=== PATIENT | male | born 1965 | race American Indian/Alaskan Native ===

== ENCOUNTER 2017-07-10 01:01 | Emergency (ER) | payer BC ==
[2017-07-10 01:09] VITALS: PULSE 108; RESP 16; TEMP 98.3; O2SAT 99
[2017-07-10] MEDS ORDERED: Oxycodone/Acetaminophen 5/325 mg Tab PO STA (01:36)
[2017-07-10] MEDS ORDERED: Oxycodone/Acetaminophen 5/325 mg Tab ONE (01:43)
--- NOTE | 2017-07-10 01:46 | ED PDOC ---
HPI: Back Time Seen by Provider: 07/10/17 01:11 Chief Complaint (Nursing): Back Pain Chief Complaint (Provider): Low back pain, right History Per: Patient History/Exam Limitations: no limitations Onset/Duration Of Symptoms: Days (3) Current Symptoms Are (Timing): Still Present Quality Of Discomfort: Sharp Severity: Severe Pain Scale Rating Of: 10 Previous Symptoms: Chronic Pain Associated Symptoms: None Additional Complaint(s): Pt states he has history of discectomy in the lumbar spine and sciatica. Pt states he saw physical therapist wednesday night and a few hours later began having pain. Pt states he has a flare up every few months but this is much worse. Pt states normally he takes flexeril and the pain improves. No recent trauma. No change or new actives. Denies fever/chills. Denies numbness/ tingling. Denies bladder or bowel incontinence. Past Medical History Reviewed: Historical Data, Nursing Documentation, Vital Signs Vital Signs: Last Vital Signs Temp 98.3 F 07/10/17 01:07 Pulse 108 H 07/10/17 01:07 Resp 16 07/10/17 01:07 BP 155/94 H 07/10/17 01:07 Pulse Ox 99 07/10/17 01:07 - Medical History PMH: Back Problems, HTN - Surgical History Surgical History: No Surg Hx - Family History Family History: States: No Known Family Hx - Living Arrangements Living Arrangements: With Family - Social History Current smoker - smoking cessation education provided: No - Home Medications Home Medications: Ambulatory Orders Medication Instructions Recorded Cyclobenzaprine [Cyclobenzaprine 10 mg PO Q8H #20 tab 07/10/17 HCl] oxyCODONE/Acetaminophen [Percocet 1 ea PO Q6H PRN #15 tab 07/10/17 5/325 mg Tab] - Allergies Allergies/Adverse Reactions: Allergies Allergy/AdvReac Type Severity Reaction Status Date / Time No Known Allergies Allergy Verified 07/10/17 01:09 Review of Systems ROS Statement: Except As Marked, All Systems Reviewed And Found Negative Constitutional: Negative for: Fever, Chills Cardiovascular: Negative for: Chest Pain, Palpitations Genitourinary Male: Negative for: Dysuria Physical Exam - Reviewed Nursing Documentation Reviewed: Yes Vital Signs Reviewed: Yes - Physical Exam Appears: Positive for: Well, Non-toxic, No Acute Distress Head Exam: Positive for: ATRAUMATIC, NORMAL INSPECTION, NORMOCEPHALIC Skin: Positive for: Normal Color, Warm, DRY Eye Exam: Positive for: Normal appearance ENT: Positive for: Normal ENT Inspection Neck: Positive for: Normal, Painless ROM Cardiovascular/Chest: Positive for: Regular Rate, Rhythm Respiratory: Positive for: CNT, Normal Breath Sounds Back: Positive for: Normal Inspection, Vertebral Tenderness (LS) Extremity: Positive for: Normal ROM Neurologic/Psych: Positive for: Alert, Oriented - ECG O2 Sat by Pulse Oximetry: 99 Medical Decision Making Medical Decision Making: x-ray normal. Disposition - Clinical Impression Clinical Impression: Back pain - Patient ED Disposition Is Patient to be Admitted: No - Disposition Disposition: Routine/Home Disposition Time: 03:15 Condition: GOOD Prescriptions: Cyclobenzaprine [Cyclobenzaprine HCl] 10 mg PO Q8H #20 tab oxyCODONE/Acetaminophen [Percocet 5/325 mg Tab] 1 ea PO Q6H PRN #15 tab PRN Reason: Pain, Severe (8-10) Instructions: Back Pain (ED) Forms: [employer] (Polish)
[2017-07-10 03:22] VITALS: BP 142/86
--- NOTE | 2017-07-12 13:14 | RAD ---
PROCEDURE: Radiographs of the Lumbar Spine. HISTORY: Back pain, history of low back pain, worse COMPARISON: No prior. FINDINGS: BONES: Alignment appears satisfactory. No listhesis. No acute displaced fracture identified. Minimal scattered changes. Facet hypertrophy. DISC SPACES: Unremarkable. OTHER FINDINGS: None. IMPRESSION: No acute displaced fracture or subluxation identified. Minimal scattered degenerative changes. Facet hypertrophy.
== END 2017-07-10 03:22 | disposition home or self-care (01) ==
LOC: H.ER 01:01
DX: M54.9 Dorsalgia, unspecified (principal)
CPT/HCPCS: 72100; 96372; 99282; J1885